=== PATIENT | female | born 1985 | race Caucasian/White ===

== ENCOUNTER 2020-08-24 13:44 | Outpatient (CLI) | payer OTHER ==
[2020-08-24 15:36] LABS: RED BLOOD COUNT 4.05 M/UL (4.00-5.10); WHITE BLOOD COUNT 6.4 K/UL (4.5-11.0)
[2020-08-25] MEDS ORDERED: PHENERGAN 12.12.5 M1 PO (06:17)
[2020-08-25] MEDS ORDERED: FAMOTIDINE20 MG PO (06:18)
[2020-08-25] MEDS ORDERED: ASPIRIN81 MG PO (06:19)
[2020-08-25] MEDS ORDERED: ADDAPRIN200 MG PO (06:20)
[2020-08-25] MEDS ORDERED: BUPRENORPHIN-N1 EACH SL (06:22)
== END 2020-08-24 15:03 | disposition home or self-care (01) ==
LOC: GENOP 13:44
PROVIDERS: Obstetrics & Gynecology
DX: Z01.812 Encounter for preprocedural laboratory examination (principal)
CPT/HCPCS: 80307; 81001; 85025

== ENCOUNTER 2020-08-25 05:21 | Inpatient (IN) | payer OTHER ==
[~2020-08-25] VITALS: Ht 154.9 cm; Wt 54.9 kg
[2020-08-25] MEDS ORDERED: PHENERGAN 12.12.5 M1 PO (06:17)
[2020-08-25] MEDS ORDERED: FAMOTIDINE20 MG PO (06:18)
[2020-08-25] MEDS ORDERED: ASPIRIN81 MG PO (06:19)
[2020-08-25] MEDS ORDERED: ADDAPRIN200 MG PO (06:20)
[2020-08-25] MEDS ORDERED: BUPRENORPHIN-N1 EACH SL (06:22)
[2020-08-26 05:17] LABS: HEMOGLOBIN 12.2 gm/dl (12.3-15.3)
[2020-08-27] MEDS ORDERED: BUPRENORPHINE HC8 MG SL (08:48)
[2020-08-27] MEDS ORDERED: DOCUSATE SODIU100 MG PO (08:48)
[2020-08-27] MEDS ORDERED: IBUPROFEN600 MG PO (08:48)
== END 2020-08-27 12:43 | disposition home or self-care (01) | DRG 787 ==
LOC: OB 05:21
PROVIDERS: Obstetrics & Gynecology; ADMIT Obstetrics & Gynecology
PROC: 4A1HXCZ Monitoring of Products of Conception, Cardiac Rate, External Approach (ICD-10-PCS; 2020-08-25)
PROC: 10D00Z1 Extraction of Products of Conception, Low, Open Approach (ICD-10-PCS; principal; 2020-08-25 07:30)
DX: O34.211 Maternal care for low transverse scar from previous cesarean delivery (principal); Z3A.39 39 weeks gestation of pregnancy; Z37.0 Single live birth; O10.92 Unspecified pre-existing hypertension complicating childbirth; O99.324 Drug use complicating childbirth; F11.20 Opioid dependence, uncomplicated; O99.354 Diseases of the nervous system complicating childbirth; Z20.822 Contact with and (suspected) exposure to COVID-19; O99.62 Diseases of the digestive system complicating childbirth; G43.909 Migraine, unspecified, not intractable, without status migrainosus; K21.9 Gastro-esophageal reflux disease without esophagitis; Z87.440 Personal history of urinary (tract) infections
CPT/HCPCS: 36415; 80307; 81001; 82800; 85014; 85018; 85025; 90715; 94664; 94760; C9113; J0690; J2274; J2590; J7120